=== PATIENT | female | born 1995 | race Caucasian/White ===

== ENCOUNTER 2020-02-26 14:17 | Emergency (ER) | payer OTHER, MEDICAID, SELFPAY ==
--- NOTE | 2020-02-26 14:29 | ED.EXTPRO ---
HPI - Extremity Problem General Chief complaint: Extremity Problem,Nontraumatic Stated complaint: left pain injury Time Seen by Provider: 02/26/20 14:29 Source: patient and RN notes reviewed History of Present Illness HPI Narrative: Patient is a 24-year-old female who presents the urgent care with complaints of left knee pain. Patient states that Wednesday she was lifting and pivoting at the same time and did not pivot the left knee when she twisted. Patient states that since then she has had posterior left knee pain. Patient has taken 1 dose of ibuprofen on Wednesday when it occurred and has been rubbing CBD oil on the knee without much improvement. Patient states that twisting the knee outward exacerbates her pain as well as weightbearing activity. No other acute complaints. No acute distress noted. Patient read the plan of care. Related Data Home Medications Medication Instructions Recorded Confirmed No Home Medications 02/26/20 02/26/20 Allergies Allergy/AdvReac Type Severity Reaction Status Date / Time Penicillins Allergy Unknown Unknown Verified 07/11/17 12:45 Sulfa (Sulfonamide Allergy Unknown Unknown Verified 07/11/17 12:45 Antibiotics) Review of Systems Review of Systems: Narrative: CONSTITUTIONAL: Denies fever, chills, or sweats. EYES: Denies visual changes, redness, or discharge. ENT: Denies rhinorrhea, congestion, sore throat, or otalgia. CARDIOVASCULAR: Denies chest pain, palpitations, or edema. RESPIRATORY: Denies cough or dyspnea. GASTROINTESTINAL: Denies abdominal pain, nausea, vomiting, or diarrhea. GENITOURINARY: Denies dysuria or hematuria. SKIN: Denies rash or itching. MUSCULOSKELETAL: Reports of posterior left knee pain NEUROLOGIC: Denies headache, numbness, or weakness. All other systems reviewed are negative, except as documented in HPI. PMFSH Social History Social History Gender identity (if verbalized by the patient): Female Comments At the time of my signature, I reviewed and agree with the nursing past medical, surgical, social, and family history. There is no relevant family history pertinent to the patient complaint. Exam Narrative: Exam Narrative: GENERAL: This is a well-nourished, well-developed patient, in no apparent distress. HEAD: normocephalic, atraumatic. EYES: PERRL. Sclera clear/white. Vision is grossly intact. EARS: External ears normal NOSE: External nose normal with no obvious nasal discharge, nares without redness, no rhinorrhea. THROAT: Mucous membranes moist NECK: Neck supple SKIN: warm, intact with no suspicious lesions or rash, good texture and turgor. NEURO: awake, alert, and oriented to person, place and time. There were no obvious focal neurologic abnormalities. EXTREMITIES: No obvious dislocation, deformity, ecchymosis, effusion, edema to the left knee/lower extremity. Range of motion within normal limits. Negative left lower extremity drawer test. No obvious Thorne's cyst. Course Vital Signs Vital signs: Vital Signs Temperature 99.2 F 02/26/20 14:30 Pulse Rate 77 02/26/20 14:30 Respiratory Rate 16 02/26/20 14:30 Blood Pressure 119/72 02/26/20 14:30 Pulse Oximetry 98 02/26/20 14:30 Temperature 99.2 F 02/26/20 14:30 Pulse Rate 77 02/26/20 14:30 Respiratory Rate 16 02/26/20 14:30 Blood Pressure 119/72 02/26/20 14:30 Pulse Oximetry 98 02/26/20 14:30 Reviewed MDM - Extremity (Nontraumatic) MDM Narrative Medical decision making narrative: Explained to the patient that x-ray would only evaluate bone abnormality or dislocation, which is highly unlikely to occur from incident she is describing. Patient deferred x-ray. Advised the patient to follow-up with a primary care doctor or an orthopedic for further evaluation and imaging if necessary. Advised the patient to use a slip on knee brace or Jacob wrap for support. Continue to ice and use ibuprofen as needed for pain. Eliminate strenuous activity, repetitive motion,
[2020-02-26 14:30] VITALS: BP 119/72; PULSE 77; RESP 16; TEMP 37.3; O2SAT 98
== END 2020-02-26 14:44 | disposition home or self-care (01) ==
PROVIDERS: Emergency Provider Nurse Practitioner Family
DX: M25.562 Pain in left knee (principal)
CPT/HCPCS: 99212; G0463

== ENCOUNTER 2023-05-07 11:06 | Emergency (ER) | payer BC, SELFPAY ==
--- NOTE | 2023-05-07 11:12 | ED.URI ---
HPI - URI/Sore Throat General Chief Complaint: Ear Stated Complaint: Bilateral Ear Irritation,Cough,Congestion Source: patient and RN notes reviewed History of Present Illness HPI Narrative: 28 yo F presents to urgent care with complaints of bilateral ear pain, worse on the right, x 5 days. Pt is also reporting a cough x 5 days. States the cough is intermittently dry and intermittently productive. Pt states she might have had a productive fever a few days ago but unsure. States when she coughs, her throat hurts, but no other throat pain since. Denies any N/V/D, chest pain, or SOB. Pt has taken Vijaya [place] with minimal relief. Related Data Home Medications Medication Instructions Recorded Confirmed No Home Medications 02/26/20 05/07/23 Allergies Allergy/AdvReac Type Severity Reaction Status Date / Time Penicillins Allergy Unknown Unknown Verified 02/27/20 08:50 Sulfa (Sulfonamide Allergy Unknown Unknown Verified 02/27/20 08:50 Antibiotics) vancomycin Allergy Unknown Rash Verified 05/07/23 11:31 Review of Systems Review of Systems: CONSTITUTIONAL: Denies fever, chills, or sweats. EYES: Denies visual changes, redness, or discharge. ENT: Denies sore throat CARDIOVASCULAR: Denies chest pain, palpitations, or edema. RESPIRATORY: Denies dyspnea. GASTROINTESTINAL: Denies abdominal pain, nausea, vomiting, or diarrhea. GENITOURINARY: Denies dysuria or hematuria. SKIN: Denies rash or itching. MUSCULOSKELETAL: Denies back pain, joint pain, or myalgia. NEUROLOGIC: Denies headache, numbness, or weakness. Pertinent positives per HPI. PMFSH Family History Family History (System 02/27/20 @ 08:50 by Hawa Negron) Mother Patient's mother is in good health Father Patient's father is , Onset Age: 49 Social History Social History (System 02/27/20 @ 08:50 by Hawa Negron) Smoking status: Former smoker Smoking end date: 06/14/17 Alcohol intake: current Gender identity (if verbalized by the patient): Female Comments At the time of my signature, I reviewed and agree with the nursing past medical, surgical, social, and family history. There is no relevant family history pertinent to the patient complaint. Exam Narrative: GENERAL: This is a well-nourished, well-developed patient, in no apparent distress. HEAD: normocephalic, atraumatic. EYES: Sclera clear/white. Vision is grossly intact. EARS: External ears normal, auditory canals clear and without drainage, TMs normal without perforation. Hearing grossly intact. NOSE: External nose normal with no obvious nasal discharge, nares without redness, no rhinorrhea. THROAT: Mucous membranes moist, posterior pharynx clear. NECK: Neck supple, non-tender with mild lymphadenopathy. no masses or thyromegaly. CARDIOVASCULAR: Regular rate and rhythm without murmurs, gallops, or rubs. RESPIRATORY: Clear to auscultation. Breath sounds equal bilaterally. No wheezes, rales, or rhonchi. GASTROINTESTINAL: Abdomen soft, non-tender, nondistended. Bowel sounds are active. No hepato-splenomegaly, or palpable masses. No guarding. SKIN: warm, intact with no suspicious lesions or rash, good texture and turgor. NEURO: awake, alert, and oriented to person, place and time. There were no obvious focal neurologic abnormalities. EXTREMITIES: No clubbing, cyanosis, or edema. No joint tenderness, effusion, or edema noted. BACK: Nontender without deformity or crepitus. No flank tenderness. Course Course Level of Care: Express Care Visit Vital Signs Vital signs: Vital Signs Temperature 98.3 F 05/07/23 11:22 Pulse Rate 84 05/07/23 11:22 Respiratory Rate 18 05/07/23 11:22 Blood Pressure 138/89 05/07/23 11:22 Pulse Oximetry 100 05/07/23 11:22 Oxygen Delivery Room Air 05/07/23 11:22 Temperature 98.3 F 05/07/23 11:22 Pulse Rate 84 05/07/23 11:22 Respiratory Rate 18 05/07/23 11:22 Blood Pressure 138/89
[2023-05-07 11:22] VITALS: BP 138/89; PULSE 84; RESP 18; TEMP 36.8; O2SAT 100
== END 2023-05-07 11:49 | disposition home or self-care (01) ==
PROVIDERS: Emergency Provider Nurse Practitioner Family
DX: B34.9 Viral infection, unspecified (principal); Z87.891 Personal history of nicotine dependence
CPT/HCPCS: 99211; G0463